=== PATIENT | female | born 1995 | race Caucasian/White ===

== ENCOUNTER → 2021-02-17 10:57 | Outpatient (CLI) | payer BC, SELFPAY ==
[2021-02-17 10:05] VITALS: BMI 28.4
[2021-02-17 12:25] LABS: Hepatitis C Antibody Non-Reactive (Nonreactive); Rubella IgG Reactive (Nonreactive)
[2021-02-18 10:27] LABS: Hepatitis Be Ag Negative (Negative)
== END ==
PROVIDERS: PCP Nurse Practitioner Family; Referring Provider Obstetrics & Gynecology; Visit Provider Obstetrics & Gynecology
DX: Z31.69 Encounter for other general counseling and advice on procreation (principal)
CPT/HCPCS: 36415; 86762; 86803; 87350

== ENCOUNTER → 2021-04-22 09:02 | Outpatient (CLI) | payer BC, SELFPAY ==
[2021-04-23 20:26] LABS: Lead, Blood Adult 16+yrs < 1 ug/dL (0-4)
== END ==
PROVIDERS: Obstetrics & Gynecology; PCP Nurse Practitioner Family; Referring Provider Obstetrics & Gynecology; Visit Provider Obstetrics & Gynecology
DX: Z77.011 Contact with and (suspected) exposure to lead (principal)
CPT/HCPCS: 36415; 83655

== ENCOUNTER → 2021-07-31 15:20 | Outpatient (CLI) | payer OTHER, SELFPAY ==
--- NOTE | 2021-07-31 15:23 | US_ITS ---
STUDY: FIRST TRIMESTER OBSTETRICAL ULTRASOUND (TWINS) REASON FOR EXAM: Female, 25 years old. LMP: 05/24/2021 possible SAB TECHNIQUE: Transabdominal TECHNICAL QUALITY: Adequate. COMPARISON: None. FINDINGS: There are two demonstrated intrauterine gestational sacs. There is a single identified placenta, without a ?twin peak? sign, indicating a probable monochorionic . The amniotic membrane cannot be visualized. The estimated gestation age (EGA) by LMP is 9 weeks, 3 days. The estimated date of delivery (ZAFAR) by LMP is 02/28/2022. BABY A The mean sac diameter (MSD) measure 2.99cm, indicating an estimated gestational age (EGA) of 8 weeks, 0 days. There is no demonstrated yolk sac. There is visualization of an embryo. The crown-rump length (CRL) measures 0.81 cm, indicating an estimated gestational age (EGA) of 6 weeks, 6 days. The estimated gestation age (EGA) by US is 7 weeks, 3 days. The estimated date of delivery (ZAFAR) by US is 03/16/2021. There is NO demonstrated cardiac activity BABY B The mean sac diameter (MSD) measure 2.99cm, indicating an estimated gestational age (EGA) of 8 weeks, 0 days. There is no demonstrated yolk sac. There is visualization of an embryo. The crown-rump length (CRL) measures 0.59 cm, indicating an estimated gestational age (EGA) of 6 weeks, 3 days. The estimated gestation age (EGA) by US is 6 weeks, 3 days. The estimated date of delivery (ZAFAR) by US is 03/23/2022. There is NO demonstrated cardiac activity There is a subchorionic hemorrhage measuring 1.3 x 1.4 x 1.6 cm US/Transvaginal w/Preg US IMPRESSION: There is a twin , but no heart rate is identified within either twin. Twin A by ultrasound measures 7 weeks 3 days, twin B 6 weeks 3 days. There should be a heart rate within each twin. 2 sonographers verified no heart tones. 1.3 x 1.4 x 1.6 cm subchorionic hemorrhage Short-term follow-up recommended to assure no retained POC Electronically Signed: Nawaf Gonzalez MD at 16:32 EST , Service support ,
== END ==
PROVIDERS: PCP Nurse Practitioner Family; Referring Provider Obstetrics & Gynecology; Visit Provider Obstetrics & Gynecology
DX: O03.9 Complete or unspecified spontaneous abortion without complication (principal)
CPT/HCPCS: 76817

== ENCOUNTER → 2021-07-31 16:27 | Outpatient (CLI) | payer OTHER, SELFPAY ==
[2021-08-05 12:45] LABS: HPV Reflexed? NOT INDICATED
== END ==
PROVIDERS: PCP Nurse Practitioner Family; Visit Provider Obstetrics & Gynecology
DX: Z34.90 Encounter for supervision of normal pregnancy, unspecified, unspecified trimester (principal)
CPT/HCPCS: 88175; G0145

== ENCOUNTER 2021-08-01 10:52 | Day surgery (SDC) | payer OTHER, SELFPAY ==
[2021-08-01] VITALS (9 sets, daily range): BP systolic 88–117; BP diastolic 62–72; PULSE 63–94; RESP 16; TEMP 36.2–36.9; O2SAT 97–100; BMI 28.0
[2021-08-01] MEDS: Doxycycline 100 MG CAPSULE PO (11:52)
[2021-08-01] MEDS: Lactated Ringers 1,000 ML 15 ML IV (11:57)
[2021-08-01 11:59] LABS: Absolute Lymphocyte Count 1.27 X10^3/uL (0.83-4.51); Absolute Neutrophil Count 5.5 X10^3/uL (2.0-7.7); Basophil# 0.04 X10^3/uL; Basophil% 0.5 % (0-1); Eosinophil# 0.26 X10^3/uL; Eosinophils% 3.4 % (0-5); Hematocrit 43.1 % (37-47); Hemoglobin 14.5 g/dL (12.0-15.0); Lymphocyte # 1.27 X10^3/ul (0.83-4.51); Lymphocyte % 16.6 % (19-41); Mean Corp Hgb Conc 33.6 g/dL (32-36); Mean Corpuscular Volume 86.2 fL (81-99); Mean Platelet Vol. 11.1 fl (6.2-12.0); Monocyte# 0.55 X10^3/uL; Monocyte% 7.2 % (0-10); NRBC Flagged by Analyzer 0 % (0-5); Neutrophil # 5.47 X10^3/uL (2.7-7.7); Neutrophil % 71.8 % (47-70); Platelet Count 203 K/mm3 (150-450); RBC Distribution Width CV 12.2 % (11.6-14.6); RBC Distribution Width SD 38.3 fl (35.1-43.9); White Blood Count 7.6 K/mm3 (4.4-11.0)
--- NOTE | 2021-08-01 13:00 | POC_PTH ---
PATIENT: JIGNESH HOFFMAN LOC: [facility] [place] U[place][id number] AGE/SX: 25/F ROOM: RE08/01/[address]: Dr. Milena Heredia MD : 1995 BED: DIS: 08/01/2021 SPEC #: [id number] RECD: 08/01/21 14:04 STATUS: RIVAS REHANA #: [id number] KATRINA: 08/01/21 13:[address]: Milena Heredia DEPT: SURGICAL PATHOLOGY RECD BY: Romi Dinh ENTERED: 08/01/21 14:15 SP TYPE: PROD CONC OTHR DR: ALEJANDRO Mejía Tissues: Product of conception, NOS Procedures: Surgery Specimen Level IV HEADER OPERATION: Suction dilation and curettage PRE-OP DIAGNOSIS: Missed TISSUE SUBMITTED: Products of conception MICROSCOPIC DIAGNOSIS Products of conception: [place]id[place], gestational endometrium and immature chorionic villi (products of conception). SJ:kishan 08/04/2021 MICROSCOPIC DESCRIPTION Slides are reviewed. GROSS DESCRIPTION Received in fixative is one container labeled with the patient's name and designated products of conception. The specimen consists of multiple irregular fragments of pink-red soft tissue that in aggregate measure 7 x 7 x 2 cm. tissue is not identified. Campaign Developer tissue is submitted in three cassettes. / NEVIN:kishan 08/01/21 TC:5 CPT: 75793
[2021-08-01] MEDS: miSOPROStol 200 MCG Tablet (13:16)
--- NOTE | 2021-08-01 13:50 | PCM.HP.BLA ---
History and Physical Date of Admission: 08/01/21 [facility] [address] [place] [address] [phone] OFFICE VISITDate of Service: 07/31/21 MR#:[id number]:[id number]: JIGNESH HOFFMANep #:[id number]:[id number] Provider:Dr. Milena Heredia, DARWINge/Sex: 25/F [facility] Intake Vital Signs 07/31/21 14:03 Height 5 ft 6 in Weight: 177 lb BMI 28.5 BP 98/64 Intake Visit Reasons: nob lmp 05/24/21 Chief Complaint: NEW OB LMP05/24/21 Secondary Connector Armature Required: No Is patient in pain?: No Allergies penicillin G Allergy (Mild, Verified 07/31/21 16:02) hive Medications multivitamin no.47-iron fum 27 mg-folate no.1 1 mg-dha 300 mg capsule 1 cap PO DAILY 07/16/21 [History Confirmed 07/31/21] Last Menstral Period: 05/24/21 Zika: Zika virus screening: Negative : No PFSH PFSH Medical History Alcohol use Anxiety and depression Asthma Heartburn Non-smoker Surgical History History of wisdom tooth extraction, class II edentulism Family History Grandmother Breast cancer Social History household members: spouse current occupational status: employed Smoking Status: Never smoker second hand exposure: No alcohol intake: current details: social substance use type: does not use what type of physical activity do you participate in: walking frequency: 3-4 times per week seatbelt use: always do you feel safe at home: Yes 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 she denies any bleeding now or crmaping, doing well overall. upon ultrasound there are two possible GS and 2 polese measuring 7 weeks with no FHT seen, large subchorionic hematoma seen. OB Visit ZAFAR Calculator Estimated Delivery Date Method Current WG Current Estimate 02/28/22 LMP (Certain) 9w 5d Estimated Due Date: 02/28/22 Expected Delivery Route/Plan Specific Issue/Plans Initial Weight: 177 lb Date EGA Weight BP Urine Prot Glucose FHR FuHt Pres Dilation Effaced St Visit Note 07/31/21 9w 5d 177 lb (+0 oz) 98/64 SM- CRL cons with lmp SM- CRL NOT cons with lmp, two GS seen and 2 poles with no FHT and no heartbeat Menstrual History Last Menstral Period: 05/24/21 Reported LMP: definite Normal amount/duration: Yes On hormonal BC at conception: No Antepartum Record Genetic Screening: Congenital Heart Defect: Other, Neural Tube Defect: Other, Hemoglobinopathy Or Carrier: Other, Cystic Fibrosis: Other, Chromosome Abnormality: Other, Froilan-Sachs: Other, Hemophilia: Other, Intellectual Disability/Autism: Other, Recurrent Loss/Stillbirth: Other, Other Structural Defect: Other, Other Genetic Disease: Other and Maternal Metabolic Disorder: Other Infection History: Live with someone with TB or Exposed to TB: No, Patient or Partner has history of Genital Herpes: No, Rash or Viral illness since last mentrual period: No, Prior GBS-Infected child: No, History of STD: No, HIV Infection: No, History of Hepatitis: No, Recent travel outside of [place]: No, Concern for hepatitis exposure: No and Varicella immune: Yes Medical History Medical History: Positive: Psychiatric, Depression/ depression and Drug/latex allergies/reactions and Negative: Diabetes, Hypertension, Heart disease, Auto-immune disorder, Kidney disease/UTI, Neurologic/epilepsy, Hepatitis/liver disease, Varicosities/phlebitis, Thyroid dysfunction, Trauma/domestic violence, History of blood transfusions, D (Rh) Sensitized, Pulmonary (e.g.,TB,Asthma), Seasonal allergies, Breast, Rest Room Matron surgery, Operations/hospitalizations, Anesthetic complications, History of abnormal pap, Uterine anomaly/rgayson, Infertility, Anti-retroviral treatment, Relevant family history and Other ACOG First Trimester First Trimester: Desire for , Alcohol, Tobacco Cessation, Illicit/Recreational Drug/Substance Use, Intimate Partner Violence, Barriers to care, Unstable Housing, Communication Barriers, Environmental/Work Hazards, Anticipated Course of Care, Nurtrition and weight gain, Toxoplasmosis Precations, Use of Any medications, Sexual activity, Exercise, Dental Care, Sauna/Hot tub use, Seat Belt use, Childbirth classes/Hospital facilities, Travel, Indications for Ultrasound and Screening for Aneuploidy; Discussed ROS Const Reports system reviewed and no additional complaints, except as documented, Reports fatigue and Denies fever(s) Eyes Reports system reviewed and no additional complaints, except as documented ENT Reports system reviewed and no additional complaints, except as documented Card Denies chest pain and Denies dyspnea Resp Reports system reviewed and no additional complaints, except as documented, Denies cough and Denies dyspnea GI Denies abdominal pain and Reports nausea Reports system reviewed and no additional complaints, except as documented Musc Reports system reviewed and no additional complaints, except as documented Skin/Breast Reports system reviewed and no additional complaints, except as documented Neuro Yes system reviewed and no additional complaints, except as documented Psych Reports system reviewed and no additional complaints, except as documented Endo Reports system reviewed and no additional complaints, except as documented and Reports fatigue Exam Const General: healthy appearing, comfortable and no acute distress Orientation: alert [facility] Head: normal to inspection, normocephalic and atraumatic Ears: hearing grossly normal bilaterally and external ears normal Nose: external nose normal and nares normal Mouth: oral mucosae normal Teeth and gingiva: dentition normal Eyes General: appearance normal, both eyes and all related structures Neck Neck: normal visual inspection, no lymphadenopathy and supple Thyroid: thyroid normal Chest Chest palpation & inspection: normal inspection of the chest Breast inspection: normal inspection of the breasts and normal inspection of the axillae Breast palpation: normal palpation of the breasts and normal palpation of the axillae Resp Effort & Inspection: normal respiratory effort GI Inspection: normal to inspection Palpation: soft and no hepatosplenomegaly General: bladder normal to palpation External Female Exam: normal external appearance and normal appearance of the urethra Urethra: normal appearance of the urethra Speculum Exam - Vagina: normal appearance of the vagina and normal vaginal discharge Speculum Exam - Cervix: normal appearance of the cervix Bimanual Exam- Vagina & Uterus: normal bimanual exam, bladder normal to palpation, non-tender and other Bimanual Exam- Adnexa, other: non-tender Skin General: no rashes or lesions noted Neuro Motor: muscle tone normal throughout and no movement abnormalities noted Extrem General: normal to inspection and full ROM Supplemental Info ACOG book given and patient encouraged to read about nutrition, exercise, weight gain, and food avoidance in . Coding Level of Care Code OB Routine Diagnoses Missed O02.1 Twin gestation in first trimester O30.001 Assessment and Plan Assessment and Plan (1) Missed : Status: Acute Comment: plan d and c measuring 7 weeks supposed to be 9. odette (2) Twin gestation in first trimester: Status: Acute Plan - Dr. Milena Heredia MD: After discussing the patient's diagnosis and treatment plan options, patient wishes to proceed with surgical management. I have discussed with the patient the risks, benefits, and alternatives of the procedure which include but are not limited to risks of anesthesia, bleeding, infection, possible damage to bowel, bladder, or surrounding vasculature which could lead to additional surgery to evaluate any complications. Patient agrees to procedure and wishes to proceed. ACOG/uptodate references given for additional information regarding procedure. Plan Details Other Orders: Orders: Type & Screen Today Z34.90 CBC W/Diff, Automated Today Z34.90 PAP I-G w/rfx hrHPV-Aptima Today Z34.90 Transvaginal w/Preg US Today O03.9 07/31/21 1634 UPDATE- I have seen the patient and performed any clinically relevant updates to the history and physical exam. Milena Heredia MD
--- NOTE | 2021-08-01 13:51 | PCM.OPRPT ---
Problems Associated Problem List Diagnoses (1) Twin gestation in first trimester: (2) Missed : Report of Operation Date of Procedure: 08/01/21 Pre-Operative Diagnosis: see problem list Post-Operative Diagnosis: same Surgery/Procedure Performed:: Suction dilation and curettage Description of Surgical Findings:: no FHT present, Nonviable 7 weeks cash control specialist: None Type of Anesthesia: Local MAC Special Medications: none Specimen's removed: POC Drains: none Estimated Blood Loss (mL): 50 Fluids Replaced: crystalloid Description of Procedure: Patient was taken to the operating room and placed under MAC local anesthesia. She was prepped and draped in the normal sterile fashion the dorsal lithotomy position. Bladder was drained of clear urine and anterior lip of the cervix was grasped and the uterus sounded to 11cm. Cervix was progressively dilated to allow passage of a 10mm suction curette. Progressive passes were made removing the retained products of conception without complication. Sharp curettage confirmed complete removal of the retained products. All instruments were removed from the vagina and excellent hemostasis was noted and the patient was taken to recovery in stable condition. Grafts/Implants Used: none Complications none Admit VTE Documentation VTE Present on Admission: No VTE Mechan Device Prophylaxis: SCD's Procedures Urinary/Genital 52xxx-59xxx: [id number] Surg Trtmt missed Ab, 1TM
--- NOTE | 2021-08-01 13:51 | EX.PCM.DISCH ---
Discharge Instructions Procedure D&C Diet Discharge Diet: No restrictions Activity Discharge Activity: Return to Normal Activity, May Shower and May Take a Tub Bath (after 1 week) May resume sexual activity in: 1-2 weeks Weight Bearing Status: Weight bearing as tolerated Lifting Restrictions: none Dressing / Incision Call your doctor if you observe: Fever of 101 or Higher, Using more than 1 pad per hour, Shortness of breath and Uncontrolled pain Follow Up Care Please Follow Up With: Milena Heredia MD When: Call [phone] to schedule appointment. Test Results: Test results from this visit will be discussed in further detail at your follow-up appointment, if applicable. Discharge Plan Admission Attending Provider: Milena Heredia Primary Care Provider: Landy Lam NP Discharge Orders/Prescriptions Prescriptions: No Action PNV-DHA 27 mg iron-1 mg -300 mg capsule 1 cap PO DAILY RF: 0 Referrals / Follow Up: Landy Lam NP, CUSTOMER SERVICES COORDINATOR-C [Primary Care Provider] - Disposition Disposition (needs filled in before D/C Order can be placed): Home, Self Care
[2021-08-01] MEDS: HYDROcodone Bitartrate/Apap 5/325 Tablet PO ×2 (14:26→14:44)
== END 2021-08-01 15:27 | disposition home or self-care (01) ==
LOC: SDC 10:55 → AC 10:56
PROVIDERS: PCP Nurse Practitioner Family; Referring Provider Obstetrics & Gynecology; Visit Provider Obstetrics & Gynecology
PROC: (CPT 59820; principal; 2021-08-01 12:45)
DX: O02.1 Missed abortion (principal); O30.001 Twin pregnancy, unspecified number of placenta and unspecified number of amniotic sacs, first trimester; Z3A.01 Less than 8 weeks gestation of pregnancy; Z85.3 Personal history of malignant neoplasm of breast; Z87.440 Personal history of urinary (tract) infections; Z88.0 Allergy status to penicillin; Z87.74 Personal history of (corrected) congenital malformations of heart and circulatory system; Z87.59 Personal history of other complications of pregnancy, childbirth and the puerperium
CPT/HCPCS: 01965; 59820; 85025; 86850; 86900; 86901; 87426; 88305; J7120; J2405